=== PATIENT | female | born 1995 | race Caucasian/White ===

== ENCOUNTER 2018-06-07 10:36 | Emergency (ER) | payer OTHER ==
--- NOTE | 2018-06-07 13:20 | UC ---
UC General HPI - HPI Summary HPI Summary: 2 DAY HX FEVER TO 102, BODYACHES, SORE THROAT, EAR PAIN AND VOMITED PLUS DIARRHEA X 1 EACH. ALSO, NO APPETITIE. - History of Current Complaint Chief Complaint: UCGeneralIllness Stated Complaint: VOMITING, FEVER, CHILLS Time Seen by Provider: 06/07/18 13:13 Hx Obtained From: Patient Hx Last Menstrual Period: 05/30/18 Timing: Constant Pain Intensity: 0 Associated Signs & Symptoms: Positive: Cough, Diarrhea - X1, Fever, Headache, Nausea, Vomiting - X1. Negative: Abdominal Pain, Chest Pain, Dysuria, SOB, Wheezing - Allergy/Home Medications Allergies/Adverse Reactions: Allergies Allergy/AdvReac Type Severity Reaction Status Date / Time sulfamethoxazole Allergy Nausea And Verified 06/07/18 11:12 [From Bactrim] Vomiting tramadol Allergy Nausea And Verified 06/07/18 11:12 Vomiting trimethoprim [From Bactrim] Allergy Nausea And Verified 06/07/18 11:12 Vomiting Home Medications: Home Medications Etonogest/Eth.estradiol (Nf) [Nuvaring Vaginal Ring] 1 each VAGINAL .SEE COMMENTS 06/07/18 [History Confirmed 06/07/18] PMH/Surg Hx/FS Hx/Imm Hx Previously Healthy: Yes - Surgical History Surgical History: Yes Surgery Procedure, Year, and Place: wisdom teeth removed 2013 - Family History Known Family History: Positive: Hypertension - Social History Occupation: Employed Full-time Alcohol Use: Occasionally Substance Use Type: None Smoking Status (MU): Never Smoked Tobacco - Immunization History Most Recent Tetanus Shot: 2011 Vaccination Up to Date: Yes Review of Systems All Other Systems Reviewed And Are Negative: Yes Constitutional: Positive: Fever, Chills Skin: Positive: Negative Eyes: Positive: Negative ENT: Positive: Sore Throat, Ear Ache Respiratory: Positive: Cough Cardiovascular: Positive: Negative Gastrointestinal: Positive: Vomiting, Diarrhea, Nausea Genitourinary: Positive: Negative Motor: Positive: Negative Neurovascular: Positive: Negative Musculoskeletal: Positive: Myalgia Neurological: Positive: Headache Psychological: Positive: Negative Is Patient Immunocompromised?: No Physical Exam Triage Information Reviewed: Yes Appearance: Ill-Appearing - BUT NON TOXIC Vital Signs: Initial Vital Signs Temp 99 F 06/07/18 11:11 Pulse 106 06/07/18 11:11 Resp 16 06/07/18 11:11 BP 102/68 06/07/18 11:11 Pulse Ox 98 06/07/18 11:11 Vital Signs Reviewed: Yes Eyes: Positive: Conjunctiva Clear ENT: Positive: Pharyngeal erythema, TMs normal, Uvula midline. Negative: Nasal congestion, Nasal drainage, Trismus, Muffled voice, Hoarse voice Neck: Positive: Supple, Enlarged Nodes @ - PERITONSILAR Respiratory: Positive: Lungs clear, Normal breath sounds, No respiratory distress, Other: - CONGESTED COUGH. Cardiovascular: Positive: No Murmur, Brisk Capillary Refill, Tachycardia Abdomen Description: Positive: Nontender, No Organomegaly, Soft. Negative: Distended, Guarding Bowel Sounds: Positive: Present Musculoskeletal: Positive: ROM Intact Neurological: Positive: Alert Psychological: Positive: Age Appropriate Behavior Skin Exam: Other - WARM, MOIST, FLUSHED. Diagnostics - Laboratory Diagnostic Studies Completed/Ordered: RAPID STREP AND FLU ARE NEGATIVE - Radiology No standard instances Radiology Interpretation Completed By: Radiologist - CXR=HYPERINFLATION WHICH CAN BE SEEN WITH COPD OR REACTIVE AIRWAY DISEASE. NO ACTIVE CARDIOPULMONARY DISEASE. 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 HE IS WORRIED IT WAS A SZ. PT DENIES ANY LOC OR CONFUSION AND IT WAS SELF LIMITED PLUS REQUIRED NO TX. IT IS UNRELATED TO CURRENT S/S'S. NEED TO F/U PCP FOR THIS WAS STRESSED AND GO TO ER IF REOCCURS. NO NEED FOR ER TRANSFER AT THIS TIME. - Differential Dx - Multi-Symptom Differential Diagnoses: Other - STREP THROAT, INFLUENZA, FLU-LIKE, PNEUMONIA. - Diagnoses Provider Diagnosis: Influenza-like illness Discharge - Sign-Out/Discharge Documenting (check all that apply): Patient Departure All imaging exams completed and their final reports reviewed: Yes - Discharge Plan Condition: Stable Disposition: HOME Patient Education Materials: Influenza (ED) Forms: *Work Release Referrals: JENSEN Landeros [Medical Doctor] - 7 Days Additional Instructions: GO TO ER FOR ANY WORSENING - Billing Disposition and Condition Condition: STABLE Disposition: Home - Attestation Statements Provider Attestation: I was available for consult. This patient was seen by the ÁNGEL. The patient was not presented to, seen by, or examined by me. -Liseth
[2018-06-07 13:22] VITALS: BP 132/82
[2018-06-07] MEDS ORDERED: Ibuprofen ADULT LIQ* 600 MG/30 ML UDC PO ONE (13:22)
== END 2018-06-07 14:56 | disposition home or self-care (01) ==
LOC: UCCORT 10:36
DX: J11.1 Influenza due to unidentified influenza virus with other respiratory manifestations (principal); Z88.1 Allergy status to other antibiotic agents; Z88.5 Allergy status to narcotic agent
CPT/HCPCS: 71046; 87651; 99212; A9270-GY; G0463